=== PATIENT | female | born 2000 | race Caucasian/White ===

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

== ENCOUNTER 2022-08-27 14:12 | Emergency (ER) | payer OTHER, SELFPAY ==
[2022-08-27] VITALS (8 sets, daily range): BP systolic 108–145; BP diastolic 66–83; PULSE 70–104; RESP 18–22; TEMP 37.3; O2SAT 98–100
--- NOTE | 2022-08-27 14:47 | ED_ITS ---
HPI - Syncope General: Chief Complaint: Syncope Stated Complaint: SYNCOPAL EPISODE Time Seen by Provider: 08/27/22 14:41 History of Present Illness: Ms. Justice is a 22-year-old lady with history of POTS and syncopal episodes presenting to the emergency department for syncope. She is somewhat unclear of events [place] [facility] and thinks she was walking when she had loss of consciousness. Denies knowledge of preceding prodrome. Since that time has had headache on the right side of her head and posterior head as well as neck pain. She has some abrasions to the right knee and right elbow region. Overall intensity symptoms is moderate. Course has persisted. No other specific changes in health, exacerbating, or alleviating factors identified. Onset (ago): unknown Prodromal symptoms: lightheaded Witnessed: No History: other Review of Systems General: Reports: 10 or more systems reviewed and unremarkable except in HPI and below PFSH ED PFSH: Medical History (Updated 08/30/22 @ 21:10 by Cordell Raymond MD) POTS (postural orthostatic tachycardia syndrome) Surgical History (Updated 08/30/22 @ 21:10 by Cordell Raymond MD) No significant past surgical history Physical Exam Const: COMMON NORMALS: patient oriented x3 and alert GENERAL APPEARANCE: cooperative and well developed HENMT: COMMON NORMALS: normocephalic and atraumatic HEAD & SCALP: normocephalic and atraumatic Eye: COMMON NORMALS: conjunctivae normal CONJUNCTIVA: Yes conjunctivae normal SCLERA: sclerae normal Neck/C-Spine: COMMON NORMALS: supple and no meningeal signs GENERAL: Yes trachea midline Resp: COMMON NORMALS: normal respiratory effort and clear to auscultation bilaterally EFFORT & INSPECTION: Yes able to speak in complete sentences AUSCULTATION: clear to auscultation bilaterally Cardio: COMMON NORMALS: regular rate and regular rhythm RATE: regular rate RHYTHM: regular rhythm GI: COMMON NORMALS: Soft to palpation PALPATION: Yes Soft to palpation and No Tenderness to palpation present (GI) PERCUSSION: normal to percussion Extremity: GENERAL: Yes normal exam except as noted and No edema Neuro: COMMON NORMALS: patient oriented x3, CN's II-XII intact bilaterally, moves all extremities, no focal motor deficits and no sensory deficits noted SENSORIUM/ORIENTATION: Yes alert and No Orientation impaired MENINGEAL SIGNS: Yes no meningeal signs Psych: COMMON NORMALS: mental status grossly normal and Normal thought process present THOUGHT PROCESS: Normal thought process present Course Vital Signs: Vital signs: Vital Signs Temperature 99.2 F 08/27/22 14:15 Pulse Rate 89 08/27/22 17:24 Respiratory Rate 19 H 08/27/22 15:30 Blood Pressure 145/78 08/27/22 17:24 Pulse Oximetry 99 08/27/22 17:24 Oxygen Delivery Me thod Room Air 08/27/22 14:15 MDM - Syncope Medical Decision Making 22-year-old lady with history of POTS presenting to the ER for syncope. Exact circumstances of syncope are unclear and headache is somewhat atypical for symptoms. There is no focal neurologic deficits or significant trauma noted on exam. EKG demonstrates sinus rhythm with normal axis and intervals, there are non specific ST segment abnormalities, no STEMI. No significant hematologic or metabolic abnormalities to explain symptoms. Chest x-ray with no lobar consolidation or pneumothorax, head CT is negative for acute intracranial pathology. Patient treated with a headache cocktail and feels improved Patient reports history of cardiac evaluation and advanced imaging of brain. Given history of extensive evaluation patient is reasonable for continued outpatient management. Exact cause of patient symptoms is unclear. The results of ED evaluation were discussed with the patient including prescriptions and/or symptomatic cares (if applicable) including appropriate and responsible use, followup plan, and return precautions. The patient verbalized understanding and felt safe for discharge. Medical Records I reviewed the patient's medical records. Lab Data I reviewed the patient's lab results. 08/27/22 15:24 08/27/22 15:24 Radiology Impressions Cervical Spine CT 08/27/22 14:53 IMPRESSION: No acute findings. Chest X-Ray 08/27/22 14:53 IMPRESSION: No acute findings. Head CT 08/27/22 14:53 IMPRESSION: No acute intracranial abnormality. Laboratory Results WBC 7.7 10^3/uL (4.5-13.0) 08/27/22 15:24 RBC 4.92 10^6/uL (4.1-5.3) 08/27/22 15:24 Hgb 15.3 g/dL (11.5-15.3) 08/27/22 15:24 Hct 44.4 % (37.0-47.0) 08/27/22 15:24 MCV 90.2 fl (81-99) 08/27/22 15: MCH 31.1 pg (28.0-34.0) 08/27/22 15: MCHC 34.5 g/dL (30.0-36.0) 08/27/22 15: RDW 11.1 % (12.1-15.1) L 08/27/22 15: Plt Count 309 10^3/cmm (130-400) 08/27/22 15: MPV 11.2 fL (7.4-10.4) H 08/27/22 15: Neut % (Auto) 66.0 % 08/27/22 15: Lymph % (Auto) 28.1 % 08/27/22: Kane % (Auto) 4.9 % 08/27/22: Eos % (Auto) 0.4 % 08/27/22: Baso % (Auto) 0.3 % 08/27/22: Neut # (Auto) 5.08 10^3/uL (1.8-8.0) 08/27/22: Lymph # (Auto) 2.2 10^3/uL (1.5-6.5) 08/27/22: Kane # (Auto) 0.4 10^3/uL (0.2-0.9) 08/27/22: Eos # (Auto) 0.0 10^3/uL (0.0-0.8) 08/27/22: Baso # (Auto) 0.0 10^3/uL (0.0-0.1) 08/27/22: Nucleated RBC % (auto) 0 % 08/27/22: Nucleated RBCs # 0.0 /100WBC 08/27/22 15: Sodium 137 mmol/L (136-145) 08/27/22 15: Potassium 3.9 mmol/L (3.5-5.1) 08/27/22 15: Chloride 102 mmol/L (98-107) 08/27/22 15: Carbon Dioxide 23 mmol/L (22-29) 08/27/22 15: Anion Gap 15.9 (5-19) 08/27/22 15:24 BUN 8 mg/dL (6-20) 08/27/22 15:24 Creatinine 0.7 mg/dL (0.5-0.9) 08/27/22 15:24 GFR Calculation 106.7 mL/min (90-130) 08/27/22 15:24 Glucose 80 mg/dL (65-115) 08/27/22 15:24 Calculated Osmolality 281 mOsm/kg (285-295) L 08/27/22 15:24 Calcium 9.8 mg/dL (8.5-10.5) 08/27/22 15:24 Magnesium 1.9 mg/dL (1.7-2.3) 08/27/22 15:24 Total Bilirubin 0.4 mg/dL (0.15-1.2) 08/27/22 15:24 AST 14 U/L (0-32) 08/27/22 15:24 ALT 7 U/L (0-33) 08/27/22 15:24 Alkaline Phosphatase 86 U/L (35-105) 08/27/22 15:24 Total Protein 7.8 g/dL (6.6-8.7) 08/27/22 15:24 Albumin 4.7 g/dL (3.5-5.2) 08/27/22 15:24 Globulin 3.1 g/dL (1.3-4.6) 08/27/22 15:24 TSH 1.19 uIU/mL (0.27-4.20) 08/27/22 15:24 HCG, Qual Negative (Negative) 08/27/22 15:24 Discharge Plan Discharge Patient Disposition: Home Clinical Impression: Syncope and collapse, Headache Condition: Stable Prescriptions: No Action gabapentin 300 mg capsule 300 mg PO BEDTIME fludrocortisone 0.1 mg tablet 0.05 mg PO BID Nortrel 1/35 (28) 1-35 mg-mcg tablet 1 tab PO BEDTIME magnesium 200 mg Tablet 200 mg PO BEDTIME levocetirizine [Xyzal] 5 mg Tablet 5 mg PO BEDTIME Corlanor 5 mg tablet See Rx Instructions .ROUTE .COMPLEX Rx Instructions: TAKE 7.5 MG IN THE MORNING AND 5 MG IN THE EVENING Salt Sticks 1 ea PO BID cyanocobalamin (vitamin B-12) [Vitamin B-12] 500 mcg Tablet 500 mcg PO QAM Discharge Orders: Discharge ED (Routine); Ordered 08/27/22 Ordered By: Cordell Raymond Discharge Diet: Usual diet Discharge Activity: Resume usual activity Patient Instructions: Syncope (ED) Activity Restrictions/Additional Instructions: Thank you for visiting the emergency department. You were seen and evaluated for syncope. The exact cause of your symptoms is unclear however does not appear to need further inpatient evaluation at this time. Please ensure that you are staying hydrated and follow all instructions previously given to you. Please follow-up with your primary care provider and care team. Return to the emergency department for anything that you are concerned about and feel needs emergency department evaluation. Coding Level of Care Code ED Photographic Specialist for Ld Caraballo
--- NOTE | 2022-08-27 14:53 | CTR_ITS ---
PROCEDURE INFORMATION: Exam: CT Cervical Spine Without Contrast Exam date and time: 08/27/2022 3:59 PM Age: 22 years old Clinical indication: Neck pain; Additional info: Syncope, neck pain TECHNIQUE: Imaging protocol: Computed tomography of the cervical spine without contrast. Radiation optimization: All CT scans at this facility use at least one of these dose optimization techniques: automated exposure control; mA and/or kV adjustment per patient size (includes targeted exams where dose is matched to clinical indication); or iterative reconstruction. REPORTING DATA: Count of CT and Cardiac NM exams in prior 12 months: This patient has received 0 known CTs and 0 known cardiac nuclear medicine studies in the 12 months prior to the current study. COMPARISON: CT cervical spin wo con* [id number] 03/29/2021 3:05 PM RADIATION DOSE METRICS: Total DLP (mGy-cm): 148 FINDINGS: Bones/joints: No acute fracture. Normal alignment. No significant disc bulge or herniation. No severe spinal canal stenosis. No significant neural foraminal narrowing. Lungs: Lung apices are normal. Soft tissues: Unremarkable. CT/CT cervical spin wo con* [id number] IMPRESSION: No acute findings.
--- NOTE | 2022-08-27 14:53 | XRR_ITS ---
PROCEDURE INFORMATION: Exam: XR Chest Exam date and time: 08/27/2022 3:02 PM Age: 22 years old Clinical indication: Other: Syncope TECHNIQUE: Imaging protocol: Radiologic exam of the chest. Views: 1 view. COMPARISON: CR XR chest 1V portable [id number] 03/29/2021 2:43 PM FINDINGS: Lungs: Unremarkable. No consolidation. Pleural spaces: Unremarkable. No pleural effusion. No pneumothorax. Heart/Mediastinum: Unremarkable. No cardiomegaly. Bones/joints: Unremarkable. XR/XR chest 1V portable [id number] IMPRESSION: No acute findings.
--- NOTE | 2022-08-27 14:53 | CTR_ITS ---
PROCEDURE INFORMATION: Exam: CT Head Without Contrast Exam date and time: 08/27/2022 3:59 PM Age: 22 years old Clinical indication: Pain; Headache; Additional info: Headache, syncope TECHNIQUE: Imaging protocol: Computed tomography of the head without contrast. Radiation optimization: All CT scans at this facility use at least one of these dose optimization techniques: automated exposure control; mA and/or kV adjustment per patient size (includes targeted exams where dose is matched to clinical indication); or iterative reconstruction. REPORTING DATA: Count of CT and Cardiac NM exams in prior 12 months: This patient has received 0 known CTs and 0 known cardiac nuclear medicine studies in the 12 months prior to the current study. COMPARISON: CT head wo con* [id number] 03/29/2021 3:03 PM RADIATION DOSE METRICS: Total DLP (mGy-cm): 1067 FINDINGS: Brain: Normal. No hemorrhage. Unremarkable white matter. No mass effect. Cerebral ventricles: No ventriculomegaly. Paranasal sinuses: Visualized sinuses are unremarkable. No fluid levels. Mastoid air cells: Visualized mastoid air cells are well aerated. Bones/joints: Unremarkable. No acute fracture. Soft tissues: Unremarkable. CT/CT head wo con* [id number] IMPRESSION: No acute intracranial abnormality.
[2022-08-27] MEDS: sodium chloride 0.9% 1,000 ML 999 ML IV (15:20)
[2022-08-27] MEDS: metoclopramide 5 mg/mL SDV 2 mL 10 MG IVP (15:20)
[2022-08-27 15:41] LABS: Basophils % 0.3 %; Eosinophils % 0.4 %; Hematocrit 44.4 % (37.0-47.0); Hemoglobin 15.3 g/dL (11.5-15.3); Lymphocytes # 2.2 10^3/uL (1.5-6.5); Lymphocytes % 28.1 %; Mean Corpuscular HGB Conc 34.5 g/dL (30.0-36.0); Mean Corpuscular Hemoglobin 31.1 pg (28.0-34.0); Mean Corpuscular Volume 90.2 fl (81-99); Mean Platelet Volume 11.2 fL (7.4-10.4); Monocytes # 0.4 10^3/uL (0.2-0.9); Monocytes % 4.9 %; Neutrophils # 5.08 10^3/uL (1.8-8.0); Nucleated Red Blood Cells % 0 %; Platelet Count 309 10^3/cmm (130-400); Red Blood Count 4.92 10^6/uL (4.1-5.3); Red Cell Distribution Width 11.1 % (12.1-15.1); White Blood Count 7.7 10^3/uL (4.5-13.0)
--- NOTE | 2022-08-27 15:48 | ECG_ITS ---
[facility] Test Date: 2022-08-27 Pat Name: Susan [employer]: Room: Gender: Female [employer] Analyst: : 2000 Requested By: Cordell Raymond Order Number: [id number] Martines MD: Everette Angeles M.D. Measurements Intervals Lee Rate: 83 P: 74 MS: 152 QRS: 71 QRSD: 93 T: 49 QT: 356 QTc: 419 Interpretive Statements SINUS RHYTHM POSSIBLE LEFT ATRIAL ENLARGEMENT [-0.1mV P-WAVE IN V1/V2] MODERATE T-WAVE ABNORMALITY, CONSIDER ANTERIOR ISCHEMIA [-0.1+ mV T-WAVE IN V3/V4] Compared to ECG 08/22/2021 14:45:18 Possible ischemia now present T-wave abnormality still present Electronically Signed On 08-27-2022 16:57:00 CDT by Everette Angeles M.D. [id number]
[2022-08-27 16:12] LABS: HCG, Serum Qual Negative (Negative)
[2022-08-27 16:20] LABS: Alanine Aminotransferase 7 U/L (0-33); Albumin Level 4.7 g/dL (3.5-5.2); Alkaline Phosphatase 86 U/L (35-105); Anion Gap 15.9 (5-19); Aspartate Amino Transferase 14 U/L (0-32); Blood Urea Nitrogen 8 mg/dL (6-20); Calcium 9.8 mg/dL (8.5-10.5); Carbon Dioxide 23 mmol/L (22-29); Chloride 102 mmol/L (98-107); Globulin 3.1 g/dL (1.3-4.6); Glomerular Filtration Rate 106.7 mL/min (90-130); Glucose 80 mg/dL (65-115); Magnesium 1.9 mg/dL (1.7-2.3); Osmolality Calculated 281 mOsm/kg (285-295); Potassium 3.9 mmol/L (3.5-5.1); Sodium 137 mmol/L (136-145); Thyroid Stimulating Hormone 1.19 uIU/mL (0.27-4.20); Total Bilirubin 0.4 mg/dL (0.15-1.2); Total Protein 7.8 g/dL (6.6-8.7)
--- NOTE | 2022-09-05 13:22 | DCPLANNER ---
senior risk manager called patient due to no primary care physician - patient declines at this time.
== END 2022-08-27 17:27 | disposition home or self-care (01) ==
PROVIDERS: Emergency Provider Emergency Medicine
DX: R55 Syncope and collapse (principal); R51.9 Headache, unspecified; G90.A Postural orthostatic tachycardia syndrome [POTS]
CPT/HCPCS: 36415; 70450; 71045; 72125; 80053; 83735; 84443; 84703; 85025; 93005; 96365; 96375; 99285; J2765; J3475; J7030